=== PATIENT | female | born 1945 | race American Indian/Alaskan Native ===

== ENCOUNTER 2019-03-17 19:36 | Emergency (ER) | payer MEDICARE ==
[2019-03-17] MEDS ORDERED: NACL 0.9% 1000 ML 1,000 ML IV ONE (21:15)
[2019-03-17] MEDS ORDERED: MORPHINE IV ONE (21:15)
[2019-03-17] MEDS ORDERED: CLEOCIN 900 MG/50 mL 900 MG/50 ML BAG IV ONE (21:15)
[2019-03-17 21:42] LABS: Basophils % (Auto) 0.3 % (0.0-1.8); Eosinophils # (Auto) 0.2 K/mm3 (0.0-0.4); Eosinophils % (Auto) 2.6 % (0.0-4.3); Hematocrit 38.2 % (30.3-42.9); Hemoglobin 12.7 gm/dl (10.1-14.3); Lymphocytes # (Auto) 1.5 K/mm3 (1.2-5.4); Lymphocytes % (Auto) 15.8 % (13.4-35.0); Mean Corpuscular HGB Conc 33 % (30-34); Mean Corpuscular Volume 93 fl (79-97); Monocytes # (Auto) 0.6 K/mm3 (0.0-0.8); Monocytes % (Auto) 6.1 % (0.0-7.3); Platelet Count 187 K/mm3 (140-440); Red Blood Count 4.12 M/mm3 (3.65-5.03); Red Cell Distribution Width 14.7 % (13.2-15.2)
--- NOTE | 2019-03-17 21:58 | Emergency Department Report ---
ED ENT HPI - General Chief complaint: Dental/Oral Stated complaint: LEFT SIDE OF FACE SWOLLEN AFTER TOOTH BEING PULLED Time Seen by Provider: 03/17/19 21:05 Source: patient Mode of arrival: Ambulatory Limitations: No Limitations - History of Present Illness Initial comments: This is a 74-year-old female nontoxic, well nourished in appearance, no acute s igns of distress presents to the ED with c/o of left dental pain and swelling. Patient stated that she had a oral surgery that was done last week and was not placed on any antibiotics. Patient stated that her oral surgeon has then placed patient on Amox as of yesterday but swelling has worsening. Patient describes toothache as aching level of 10 out of 10. Patient denies any numbness, tingling, fever, chills, headache, stiff neck, abdominal pain, chest pain, shortness of breath. Patient denies any drug allergies. MD complaint: tooth pain -: days(s) Location: tooth # 1 - pain here Severity: moderate Severity scale (0 -10): 10 Quality: aching Consistency: constant Improves with: none Worsens with: none Associated Symptoms: gum swelling, toothache. denies: fever, cough, pain with swallowing, sore throat, tinnitus, hearing loss, discharge from ear, rhinorrhea - Related Data Allergies Allergy/AdvReac Type Severity Reaction Status Date / Time No Known Allergies Allergy Unverified 03/17/19 19:51 ED Dental HPI - General Chief complaint: Dental/Oral Stated complaint: LEFT SIDE OF FACE SWOLLEN AFTER TOOTH BEING PULLED Time Seen by Provider: 03/17/19 21:05 Source: patient Mode of arrival: Ambulatory Limitations: No Limitations - Related Data Allergies Allergy/AdvReac Type Severity Reaction Status Date / Time No Known Allergies Allergy Unverified 03/17/19 19:51 ED Review of Systems ROS: Stated complaint: LEFT SIDE OF FACE SWOLLEN AFTER TOOTH BEING PULLED Other details as noted in HPI Constitutional: denies: chills, fever Eyes: denies: eye pain, eye discharge, vision change ENT: dental pain. denies: ear pain, throat pain Respiratory: denies: cough, shortness of breath, wheezing Cardiovascular: denies: chest pain, palpitations Endocrine: no symptoms reported Gastrointestinal: denies: abdominal pain, nausea, diarrhea Genitourinary: denies: urgency, dysuria, discharge Musculoskeletal: denies: back pain, joint swelling, arthralgia Skin: denies: rash, lesions Neurological: denies: headache, weakness, paresthesias Psychiatric: denies: anxiety, depression Hematological/Lymphatic: denies: easy bleeding, easy bruising ED Past Medical Hx - Past Medical History Previous Medical History?: Yes Hx Hypertension: Yes Hx of Cancer: Yes (Lung Cancer 10 years ago) Additional medical history: Gout, Hypokalemia - Surgical History Past Surgical History?: Yes Additional Surgical History: Partial Hysterectomy - Social History Smoking Status: Never Smoker Substance Use Type: None ED Physical Exam - General Limitations: No Limitations General appearance: alert, in no apparent distress - Head Head exam: Present: atraumatic, normocephalic - Expanded ENT Exam Expanded Ear exam: Present: normal external inspection Mouth exam: Present: trismus, tongue normal. Absent: drooling, muffled voice Teeth exam: Present: dental tenderness #, gingival enlargement, other (left facial swelling) Throat exam: Positive: normal inspection, other (uvula midline.). Negative: tonsillar erythema, tonsillomegaly, tonsillar exudate, R peritonsillar mass, L peritonsillar mass - Neck Neck exam: Present: normal inspection, full ROM. Absent: tenderness, meningismus, lymphadenopathy - Extremities Exam Extremities exam: Present: normal inspection, full ROM - Back Exam Back exam: Present: normal inspection, full ROM - Neurological Exam Neurological exam: Present: alert, oriented X3, normal gait - Psychiatric Psychiatric exam: Present: normal affect, normal mood - Skin Skin exam: Present: warm, dry, intact, normal color. Absent: rash ED Course Vital Signs 03/17/19 19:59 Temperature 98.9 F Pulse Rate 93 H Respiratory 18 Rate Blood Pressure 175/91 O2 Sat by Pulse 97 Oximetry - Reevaluation(s) Reevaluation #1: 03/17/19 21:58 Patient is speaking in full sentences with no signs of distress noted. Reevaluation #2: 03/18/19 00:47 Airway is intact. Patient is resting comfortably. - Consultations Consultation #1: 03/18/19 00:20 Patient has been consulted with Dr. Cummins about patient history, physical exam, and labs/CT results and agrees for oral surgery consult with possible transfer. Consultation #2: 03/18/19 00:37 Patient has been consulted with Dr. Parson (oral surgery [facility] [place]) about patient history, physical exam, and labs/CT results and stated patient can be transferred and accepted by hospitalist. Consultation #3: 03/18/19 00:47 Patient has been consulted with Dr. Pereira ([facility] [place] hospitalist) about patient history, physical exam, and labs/CT results and accepts patient to services. ED Medical Decision Making - Lab Data Result diagrams: 03/17/19 21:30 03/17/19 21:30 - Medical Decision Making This is a 74-year-old female that presents with oral abscess. Patient is stable and was examined by me. Patient transferred to [facility] for further evaluation and treatment by oral surgery. Patient started on clindamycin IV in the ER. Patient placed on nothing by mouth. At time of transfer, the patient does not seem toxic or ill in appearance. No acute signs of distress noted. Patient agrees to transfer treatment plan of care. No further questions noted by the patient. Critical care attestation.: If time is entered above; I have spent that time in minutes in the direct care of this critically ill patient, excluding procedure time. ED Disposition Clinical Impression: Dental abscess Disposition: [id number]/TX-[id number] ANOTHER TYPE HLTHCARE Is pt being admited?: No Condition: Stable
[2019-03-17 21:59] LABS: Calcium 10.6 mg/dL (8.4-10.2)
--- NOTE | 2019-03-17 23:58 | Cat Scan Report ---
CT facial bones w con INDICATION: pain left sided facial swelling r/o abscess. TECHNIQUE: All CT scans at this location are performed using CT dose reduction for ALARA by means of automated e xposure control. COMPARISON: None available. FINDINGS: There is asymmetrical enlargement of the left masseter muscles, with a 2 cm area of peripheral enhanc ement and central low attenuation, consistent with abscess. There is also inflammatory change in the surrounding fat. Appearance is consistent with soft tissue abscess. Adjacent nodes are abnormally enl arged. IMPRESSION: 1. Inflammation and localized abscess involving the left masseter muscles and adjacent soft tissues. Signer Name: Guido Carey MD Signed: 03/17/2019 11:53 PM Workstation Name: [id number]
[2019-03-18 01:04] VITALS: BP 176/87
== END 2019-03-18 01:30 | disposition other institution (70) ==
LOC: ED 19:36
DX: K04.7 Periapical abscess without sinus (principal); I10 Essential (primary) hypertension; M10.9 Gout, unspecified; E87.6 Hypokalemia; Z90.710 Acquired absence of both cervix and uterus; Z85.118 Personal history of other malignant neoplasm of bronchus and lung
CPT/HCPCS: 36415; 70487; 80048; 82140; 85025; 96365; 96375; 99285; J2270; J7030; Q9967